=== PATIENT | male | born 1975 | race Caucasian/White ===

== ENCOUNTER 2019-06-20 13:53 | Emergency (ER) | payer SELFPAY ==
[2019-06-20] MEDS ORDERED: IBUPROFEN 600 MG TABLET PO ONE (14:08)
--- NOTE | 2019-06-20 14:36 | Emergency Department Record ---
History of Present Illness - General Chief complaint: Extremity Problem Stated complaint: WC/HAND INJURY Time Seen by Provider: 06/20/19 14:06 Source: Patient Mode of Arrival: Ambulatory Limitations: No limitations - History of Present Illness Initial comments: The patient is here due to a work injury. He had his R hand crushed between 2 metal objects at work and now has pain mainly over the thumb and 1st MC bone. He denies any other injuries. MD Complaint: Extremity pain Onset/Timin -: Minutes(s) Location: Right, Hand History of Same: No Severity scale (1-10): 6 Quality: Aching Consistency: Constant Improves with: Nothing Worsens with: Other Associated Symptoms: Denies other symptoms - Related Data Home Medications Medication Instructions Recorded Confirmed Last Taken Albuterol Sulfate [Ventolin Hfa] 1 - 2 puff IH .EVERY 4-6 HOURS PRN 06/20/19 06/20/19 Unknown Sertraline HCl [Zoloft] 200 mg PO DAILY 06/20/19 06/20/19 Unknown Allergies Allergy/AdvReac Type Severity Reaction Status Date / Time codeine Allergy ANAPHYLAXIS Verified 06/20/19 14:00 Travel Screening - Travel/Exposure Within Last 30 Days Have you traveled within the last 30 days?: No - Travel/Exposure Within Last Year Have you traveled outside the [place] in the last year?: No - Additonal Travel Details Have you been exposed to anyone with a communicable illness?: No - Travel Symptoms Symptom Screening: None Review of Systems Constitutional: Denies: Chills, Fever Past Medical History - SOCIAL HISTORY Smoking Status: Never smoker Alcohol Use: None Drug Use: None - RESPIRATORY Hx Respiratory Disorders: Yes Hx Asthma: Yes - CARDIOVASCULAR Hx Cardio Disorders: No - NEURO Hx Neuro Disorders: No - GI Hx GI Disorders: No - Hx Genitourinary Disorders: No - ENDOCRINE Hx Endocrine Disorders: No - MUSCULOSKELETAL Hx Musculoskeletal Disorders: No - PSYCH Hx Psych Problems: Yes Hx Anxiety: Yes - HEMATOLOGY/ONCOLOGY Hx Hematology/Oncology Disorders: No Family Medical History Any Significant Family History?: No Physical Exam - General General Appearance: Alert, Oriented x3, Cooperative, No acute distress - Head Head exam: Atraumatic - Eye Eye exam: Normal appearance - Extremities Extremities exam: Full ROM (There is normal flexion and extension with mild pain.), Normal capillary refill, Tenderness (There is tenderness to the R 1st MCP joint and proximal 1st phalynx. ). negative: Normal inspection (There is slight bruising at the R 1st MCP joint with tenderness. ), Joint swelling Image of Hand: 1 - Area of pain and tenderness. - Neurological Neurological exam: Alert, Normal gait, Oriented X3. negative: Abnormal gait, Motor sensory deficit Course Vital Signs 06/20/19 13:55 Temperature 98.1 F Pulse Rate 102 H Respiratory 20 Rate Blood Pressure 132/94 Pulse Ox 98 - Reevaluation(s) Reevaluation #1: The patient is resting comfortably. I did discuss the neg xrays with the patient. The patient does not feel he needs any work restrictions and also is declining a thumb spica splint. He is to return to the ER for any problems. 06/20/19 15:15 Medical Decision Making - Data Complexity MDM Data: X-Ray Ordered and/or Reviewed - Radiology Data Radiology results: Report reviewed (R hand: neg for acute injury.) Disposition Disposition: Discharge Clinical Impression: Contusion of hand, right Qualifiers: Encounter type: initial encounter Qualified Code(s): S60.221A - Contusion of right hand, initial encounter Disposition: Home, Self-Care Condition: (2) Stable Instructions: Hand Sprain (ED) Additional Instructions: Please use Tylenol or Motrin for pain and ice the hand when possible. Please return to the ER for any problems or issues. Forms: Patient Portal Access Time of Disposition: 15:14 Quality - Quality Measures Quality Measures: N/A - Blood Pressure Screening View Details: Yes Does Patient Have Any of the Following: No Blood Pressure Classification: Hypertensive Reading Systolic Measurement: 132 Diastolic Measurement: 94 Screening for High Blood Pressure: < First Hypertensive BP, F/U Documented > [[id number]] First Hypertensive Follow-up Interventions: Referral to alternative/primary care provider.
[2019-06-20 17:02] LABS: AMPHETAMINE SCREEN URINE NOT DETECTED; BARBITURATE SCREEN URINE NOT DETECTED; BENZODIAZEPINE SCREEN URINE NOT DETECTED; COCAINE SCREEN URINE NOT DETECTED; METHADONE SCREEN URINE NOT DETECTED; METHAMPHETAMINE SCREEN NOT DETECTED; OPIATE SCREEN URINE NOT DETECTED; OXYCODONE SCREEN URINE NOT DETECTED; PHENCYCLIDINE SCREEN URINE NOT DETECTED; PROPOXYPHENE SCREEN URINE NOT DETECTED; THC SCREEN URINE NOT DETECTED; TRICYCLIC ANTIDEPRESSANT SCRN NOT DETECTED
--- NOTE | 2019-06-22 15:25 | RADIOLOGY REPORT ---
EXAM: HAND, RIGHT 3 VIEWS HISTORY: PATIENT HAS PAIN OF THE RIGHT THUMB. STATUS POST INJURY AT WORK. TECHNIQUE: Three views of the right hand are provided without comparison examinations. FINDINGS: There is no radiographic evidence of an acute fracture or dislocation of the right hand. There is a contour deformity identified at the fifth metacarpal, which may be the result of a healed prior fracture. A subchondral cyst is identified within the lunate bone, which may be related to osteoarthritic changes. There is no radiographic evidence of an acute fracture or dislocation of the right first digit. No significant soft tissue abnormalities are visualized. No radiopaque foreign bodies are identified. IMPRESSION: 1. NO RADIOGRAPHIC EVIDENCE OF AN ACUTE FRACTURE OR DISLOCATION OF THE RIGHT HAND. 2. CONTOUR DEFORMITY OF THE FIFTH METACARPAL IS COMPATIBLE WITH HISTORY OF HEALED FRACTURE. JOB NUMBER: [id number] [facility] [place] [facility]
== END 2019-06-20 15:19 | disposition home or self-care (01) ==
LOC: ER 13:53
DX: S60.221A Contusion of right hand, initial encounter (principal); W23.0XXA Caught, crushed, jammed, or pinched between moving objects, initial encounter; Y92.63 Factory as the place of occurrence of the external cause; Y99.0 Civilian activity done for income or pay
CPT/HCPCS: 80305; 99283; 99284